=== PATIENT | female | born 1945 | race Caucasian/White ===

== ENCOUNTER 2016-09-13 16:39 | Emergency (ER) | payer MEDICAID, MEDICARE ==
[2016-09-13 16:44] VITALS: BP 141/76
[2016-09-13] MEDS ORDERED: CEPHALEXIN 500 MG CAPSULE PO ONE (17:15)
--- NOTE | 2016-09-13 17:28 | ER Document Report ---
HPI - HPI Patient complains to provider of: r 4th toe pain Onset: Other - 2 days Onset/Duration: Gradual Quality of pain: Achy Pain Level: 5 Context: Pt complains of pain to right fourth toe with redness and swelling. Patient denies any injury. Patient denies any fever. Associated Symptoms: Other - toe pain, swelling. denies: Fever Exacerbated by: Movement, Walking Relieved by: Denies Similar symptoms previously: No Recently seen / treated by doctor: No - ROS ROS below otherwise negative: Yes Systems Reviewed and Negative: Yes All other systems reviewed and negative - CONSTITUTIONAL Constitutional: DENIES: Fever, Chills - GASTROINTESTINAL Gastrointestinal: DENIES: Nausea - MUSCULOSKELETAL Musculoskeletal: REPORTS: Extremity pain - r 4th toe, Swelling - DERM Skin Color: Erythema Notes: fluid filled lesion to toe Past Medical History - General Information source: Patient - Social History Smoking Status: Never Smoker Frequency of alcohol use: None Drug Abuse: None Lives with: Alone Family History: Reviewed & Not Pertinent Patient has suicidal ideation: No Patient has homicidal ideation: No - Past Medical History Cardiac Medical History: Reports: Hx Coronary Artery Disease, Hx Hypercholesterolemia, Hx Hypertension Endocrine Medical History: Reports: Hx Diabetes Mellitus Type 2 Renal/ Medical History: Denies: Hx End Stage Renal Disease, Hx Peritoneal Dialysis, Hx Renal Insufficiency Past Surgical History: Reports: Hx Cardiac Surgery Vertical Provider Document - CONSTITUTIONAL Agree With Documented VS: Yes Exam Limitations: No Limitations General Appearance: WD/WN, No Apparent Distress - INFECTION CONTROL TRAVEL OUTSIDE OF THE [place] IN LAST 30 DAYS: No - HEENT HEENT: Atraumatic, Normocephalic - NECK Neck: Normal Inspection - RESPIRATORY Respiratory: No Respiratory Distress O2 Sat by Pulse Oximetry: 98 - CARDIOVASCULAR Pulses: Normal: Dorsalis pedis - MUSCULOSKELETAL/EXTREMETIES Musculoskeletal/Extremeties: MAEW, Tender - r 4th toe tenderness, Edema - NEURO Level of Consciousness: Awake, Alert, Appropriate Motor/Sensory: No Motor Deficit - DERM Integumentary: Warm, Dry Notes: Patient with a purulent, fluid-filled bulla along the nail margin of the right fourth toe concerning for paronychia. Patient with minimal erythema extending from the toe into the foot. Course - Re-evaluation Re-evalutation: 09/13/16 17:[address] Arora who recommends draining lesion and debriding devitalized tissue 09/13/16 17:34 After toe was cleansed with Betadine solution, needle was used to drain purulent drainage. Devitalized tissue was lifted with pickups and removed with scissors. Patient tolerated procedure well. - Vital Signs Vital signs: Temp Pulse Resp BP Pulse Ox 98.2 F 86 20 141/76 H 98 09/13/16 16:43 09/13/16 16:43 09/13/16 16:43 09/13/16 16:43 09/13/16 16:43 Discharge - Discharge Clinical Impression: Paronychia of fourth toe of right foot Cellulitis Qualifiers: Site of cellulitis: extremity Site of cellulitis of extremity: lower extremity Laterality: right Qualified Code(s): L03.115 - Cellulitis of right lower limb Condition: Stable Disposition: HOME, SELF-CARE Instructions: Paronychia ([facility]), Cellulitis ([facility]), Cephalexin ([facility]) Additional Instructions: Return immediately for any new or worsening symptoms: fever, increased redness, increased swelling, increased pain, or any concerning symptoms Followup with your primary care provider, call tomorrow to make a followup appointment Wound culture is pending, we will call if you need any different treatment Follow-up with your primary doctor Thursday for recheck Prescriptions: Cephalexin Monohydrate [Keflex 500 mg Capsule] 500 mg PO BID 7 Days Referrals: MARCELLE PALUMBO MD [ACTIVE STAFF] - 09/15/16
== END 2016-09-13 18:01 | disposition home or self-care (01) ==
LOC: ER 16:39
PROC: 0H9MXZZ Drainage of Right Foot Skin, External Approach (ICD-10-PCS; principal; 2016-09-13)
DX: L03.031 Cellulitis of right toe (principal); L03.115 Cellulitis of right lower limb; R22.9 Localized swelling, mass and lump, unspecified; I25.10 Atherosclerotic heart disease of native coronary artery without angina pectoris; E78.00 Pure hypercholesterolemia, unspecified; I10 Essential (primary) hypertension; E11.9 Type 2 diabetes mellitus without complications
CPT/HCPCS: 99281; 87070; 87205; 87075; 87077; 87186; 10060; A9270; 99283

== ENCOUNTER 2017-08-27 06:56 | Day surgery (SDC) | payer MEDICARE, MEDICAID ==
[~2017-08-27 06:56] MED LIST: KETOROLAC TROMETHAMINE 0.45% 4 DROP/0.4 ML DROPERETTE OS PRN; MIDAZOLAM 2 MG/2 ML INJ ONE
[2017-08-27] MEDS ORDERED: EPINEPHRINE INJ/PF 1 MG/1 ML AMPULE ONE (07:12)
[2017-08-27] MEDS ORDERED: LIDOCAINE 1% INJ-PF (10 MG/ML) 30 ML SDV ONE (07:13)
[2017-08-27] MEDS ORDERED: CHONDR SU A NA/HYALUR INTRAOC KIT (SURGICARE) ONE (07:13)
[2017-08-27] MEDS: TETRACAINE HCL 0.5% OPH SOLN 2 ML OS PRN ×3 (07:54→08:22)
[2017-08-27] MEDS: BESIFLOXACIN HCL 0.6% OPH SUSP 5 ML BOTTLE OS PRN ×3 (07:54→08:39)
[2017-08-27] MEDS: CYCLOPENTOLATE 0.2%/PHENYLEPHRINE 1% OPH SOLN 2 ML OS PRN ×3 (07:54→08:13)
[2017-08-27] MEDS: TROPICAMIDE 1% OPH SOLN 3 ML OS PRN ×3 (07:54→08:13)
--- NOTE | 2017-08-27 14:45 | [facility] OPERATIVE REPORT E ---
[facility] Operative Report NAME: KARINA DONG AGE: 71Y DATE OF SURGERY: 08/27/2017 ROOM: PREOPERATIVE DIAGNOSIS: CATARACT, LEFT EYE. POSTOPERATIVE DIAGNOSIS: CATARACT, LEFT EYE. OPERATION: Cataract extraction with intraocular lens implant of the left eye. SURGEON: KAYLIN DOYLE M.D. ANESTHESIA: Topical. TISSUE REMOVED OR ALTERED: PROCEDURE: After obtaining appropriate consent, the patient's left eye was prepped and draped in sterile fashion as well as the surgeon in a sterile manner and cataract surgery was started. First a paracentesis blade was used to make a small side-port incision. Viscoelastic was used to inflate the anterior chamber. Next a 2.4 mm incision was made with the paracentesis blade. A continuous capsulorrhexis incision was made using a cystotome and Utrata forceps. Following this hydrodissection was carried out to make the lens fully loose and mobile and it was rotated 90 degrees. Following this, a vyawhz-vor-fjhsjrm technique was used to phacoemulsify the lens with a CDE of 9.01. The remaining cortex was removed with irrigation/aspiration. Provisc was instilled into the capsular bag to inflate the bag. A SN60WF, 22.0 diopter lens was placed. The remaining viscoelastic material was removed with irrigation/aspiration. Vigamox was instilled in the eye and a protective shield was placed over the eye. The patient returned to the postoperative recovery in stable condition. DICTATING PHYSICIAN: KAYLIN DOYLE M.D. [id number] PHY#: [id number] ID: [id number] JOB#: [id number] ACCT: [id number] cc:KAYLIN DOYLE M.D. > MTDD
--- NOTE | 2017-08-27 14:49 | [facility] DISCHARGE SUMMARY E ---
[facility] Discharge Summary NAME: KARINA DONG AGE: 71Y ADMITTED: 08/27/2017 DISCHARGED: 08/27/2017 FINAL DIAGNOSIS: Cataract, left eye. HOSPITAL COURSE: This is a 71-year-old patient who underwent cataract extraction of the left eye. He underwent surgery because he was having difficulty reading road signs and words on the television. She should be on a regular diet. No bending at her waist, no heavy lifting. She should use Besivance, Ilevro and Durezol at 3:00 p.m. and 8:00 p.m. Sleep with a rigid shield. I will see her for a 1-day postoperative tomorrow. DICTATING PHYSICIAN: KAYLIN DOYLE M.D. [id number] PHY#: [id number] ID: [id number] JOB#: [id number] ACCT: [id number] cc:KAYLIN DOYLE M.D. >
== END 2017-08-27 09:20 | disposition home or self-care (01) ==
LOC: SC 06:56
PROVIDERS: ATTEND Internal Medicine
DX: H25.13 Age-related nuclear cataract, bilateral (principal); H35.3131 Nonexudative age-related macular degeneration, bilateral, early dry stage; H04.123 Dry eye syndrome of bilateral lacrimal glands; H01.002 Unspecified blepharitis right lower eyelid; E11.9 Type 2 diabetes mellitus without complications; H01.005 Unspecified blepharitis left lower eyelid; I10 Essential (primary) hypertension; J44.9 Chronic obstructive pulmonary disease, unspecified; G47.30 Sleep apnea, unspecified; Z79.84 Long term (current) use of oral hypoglycemic drugs; Z79.899 Other long term (current) drug therapy; Z79.4 Long term (current) use of insulin
CPT/HCPCS: 66984; 82962; V2632; J2250; J3490 ×2; A9270; J0171; 142

== ENCOUNTER 2017-09-24 06:32 | Day surgery (SDC) | payer MEDICARE, MEDICAID ==
[~2017-09-24 06:32] MED LIST changes: +KETOROLAC TROMETHAMINE 0.45% 4 DROP/0.4 ML DROPERETTE OD PRN; -KETOROLAC TROMETHAMINE 0.45% 4 DROP/0.4 ML DROPERETTE OS PRN; -MIDAZOLAM 2 MG/2 ML INJ ONE
[2017-09-24] MEDS ORDERED: EPINEPHRINE INJ/PF 1 MG/1 ML AMPULE ONE (06:51)
[2017-09-24] MEDS ORDERED: LIDOCAINE 1% INJ-PF (10 MG/ML) 30 ML SDV ONE (06:51)
[2017-09-24] MEDS ORDERED: CHONDR SU A NA/HYALUR INTRAOC KIT (SURGICARE) ONE (06:51)
[2017-09-24] MEDS: BESIFLOXACIN HCL 0.6% OPH SUSP 5 ML BOTTLE OD PRN ×4 (06:53→08:23)
[2017-09-24] MEDS: TROPICAMIDE 1% OPH SOLN 3 ML OD PRN ×3 (06:53→07:11)
[2017-09-24] MEDS: CYCLOPENTOLATE 0.2%/PHENYLEPHRINE 1% OPH SOLN 2 ML OD PRN ×3 (06:53→07:11)
[2017-09-24] MEDS: TETRACAINE HCL 0.5% OPH SOLN 2 ML OD PRN ×3 (06:53→07:53)
[2017-09-24] MEDS ORDERED: FENTANYL CITRATE INJ/PF 100 MCG/2 ML AMPUL ONE (07:01)
[2017-09-24] MEDS ORDERED: MIDAZOLAM 2 MG/2 ML INJ ONE (07:01)
--- NOTE | 2017-09-24 20:05 | [facility] DISCHARGE SUMMARY E ---
[facility] Discharge Summary NAME: KARINA DONG AGE: 72Y ADMITTED: 09/24/2017 DISCHARGED: 09/25/2027 HOSPITAL COURSE: This is a 72-year-old patient who underwent cataract extraction of the right eye. DIAGNOSIS: CATARACT, RIGHT EYE. He underwent surgery because he was having difficulty seeing letters on the television. DISCHARGE INSTRUCTIONS: He should be on a regular diet. No bending at the waist, no heavy lifting. He should use the Besivance, Ilevro, and Durezol at 3 p.m. and 8 p.m. and sleep with a rigid shield. I will see him for his 1 day postoperative tomorrow. DICTATING PHYSICIAN: KAYLIN DOYLE M.D. [id number] PHY#: [id number] ID: [id number] JOB#: [id number] ACCT: [id number] cc:KAYLIN DOYLE M.D. >
--- NOTE | 2017-09-24 20:06 | [facility] OPERATIVE REPORT E ---
[facility] Operative Report NAME: KARINA DONG AGE: 72Y DATE OF SURGERY: 09/24/2017 ROOM: PREOPERATIVE DIAGNOSIS: CATARACT, RIGHT EYE. POSTOPERATIVE DIAGNOSIS: CATARACT, RIGHT EYE. OPERATION: Cataract extraction with insertion of an IOL of the right eye. SURGEON: KAYLIN DOYLE M.D. ANESTHESIA: Topical. PROCEDURE: After obtaining appropriate consent, the patient's right eye was prepped and draped in sterile fashion as well as the surgeon in a sterile manner and cataract surgery was started. First a paracentesis blade was used to make a side-port incision. Viscoelastic was used to inflate the anterior chamber. Next a 2.4 mm incision was made with a 2.4 mm blade, clear corneal temporally. A continuous capsulorrhexis was made using a cystotome and Utrata forceps. Following this hydrodissection was carried out to make the lens fully loose and mobile and it was rotated 90 degrees. Following this, a iqbxrd-ixd-qgqeknn technique was used to phacoemulsify the lens with a CDE of 7.09. The remaining cortex was removed with irrigation/aspiration. Provisc was instilled into the capsular bag to inflate the bag. A SN60WF, 22.5 diopter lens was placed. The remaining viscoelastic material was removed with irrigation/aspiration. Following this, the incision was found to be watertight. Besivance was instilled into the eye and a protective shield was placed over the eye. The patient returned to the postoperative recovery in stable condition. DICTATING PHYSICIAN: KAYLIN DOYLE M.D. [id number] PHY#: [id number] ID: [id number] JOB#: [id number] ACCT: [id number] cc:KAYLIN DOYLE M.D. >
== END 2017-09-24 09:04 | disposition home or self-care (01) ==
LOC: SC 06:32
PROVIDERS: ATTEND Internal Medicine
DX: H25.11 Age-related nuclear cataract, right eye (principal); Z96.1 Presence of intraocular lens; I10 Essential (primary) hypertension; E11.9 Type 2 diabetes mellitus without complications; G47.30 Sleep apnea, unspecified; F17.290 Nicotine dependence, other tobacco product, uncomplicated; I25.2 Old myocardial infarction; Z79.84 Long term (current) use of oral hypoglycemic drugs; Z79.4 Long term (current) use of insulin
CPT/HCPCS: 66984; 82962; V2632; J2250; J3490 ×2; A9270; J0171; J3010; 142

== ENCOUNTER 2017-09-26 14:34 | Emergency (ER) | payer MEDICARE, MEDICAID ==
--- NOTE | 2017-09-26 14:40 | ER Document Report ---
ED General - General Stated Complaint: FALL RIGHT LEG PAIN Time Seen by Provider: 09/26/17 14:37 Mode of Arrival: Medic Information source: Patient, Parent TRAVEL OUTSIDE OF THE U.[place]. IN LAST 30 DAYS: No - HPI Notes: 72-year-old female presents ED today with complaints of right foot pain after she fell through porch and hurt her ankle 2 hours ago. Denies any head trauma change in level consciousness. Pain is 7 out of 10, throbbing achy. Worse with movement, better at rest. Denies any numbness or tingling bilateral lower extremities. Denies any other injury. Has not tried any natr-vbg-ifgoqvf medications. Unable to bear full weight. Worse with time, nothing makes better. Denies any radiation of pain. Denies fevers, chills, chest pain, palpitations, shortness of breath, dyspnea, nausea, vomiting, diarrhea, abdominal pain, hematuria,blurred vision, double vision, loss of vision, speech changes, LH, dizziness, syncope, headaches, wheezing, ST, URI, neck pain, weakness, bowel or bladder dysfunction, saddle anesthesia, numbness or tingling in bilateral upper or lower extremities equally, muscle paralysis, weakness in bilateral upper or lower extremities equally or rash. Denies IV drug use. - Related Data Allergies/Adverse Reactions: No Known Allergies Allergy (Verified 09/24/17 06:58) Past Medical History - General Information source: Patient - Social History Smoking Status: Unknown if Ever Smoked Family History: Reviewed & Not Pertinent - Past Medical History Cardiac Medical History: Reports: Hx Coronary Artery Disease, Hx Heart Attack - 2013, Hx Hypercholesterolemia, Hx Hypertension Pulmonary Medical History: Denies: Hx Asthma Neurological Medical History: Denies: Hx Cerebrovascular Accident, Hx Seizures Endocrine Medical History: Reports: Hx Diabetes Mellitus Type 2 Renal/ Medical History: Denies: Hx End Stage Renal Disease, Hx Peritoneal Dialysis, Hx Renal Insufficiency GI Medical History: Denies: Hx Hepatitis, Hx Hiatal Hernia, Hx Ulcer Infectious Medical History: Denies: Hx Hepatitis Past Surgical History: Reports: Hx Cardiac Surgery. Denies: Hx Mastectomy, Hx Open Heart Surgery, Hx Pacemaker - Immunizations Hx Diphtheria, Pertussis, Tetanus Vaccination: Yes Review of Systems - Review of Systems Constitutional: No symptoms reported EENT: No symptoms reported Cardiovascular: No symptoms reported Respiratory: No symptoms reported Gastrointestinal: No symptoms reported Genitourinary: No symptoms reported Female Genitourinary: No symptoms reported Musculoskeletal: See HPI Skin: No symptoms reported Hematologic/Lymphatic: No symptoms reported Neurological/Psychological: No symptoms reported Physical Exam - Vital signs Vitals: Temp Pulse Resp BP Pulse Ox 98.0 F 89 16 181/81 H 97 09/26/17 14:50 09/26/17 14:50 09/26/17 14:50 09/26/17 14:50 09/26/17 14:50 - Notes Notes: PHYSICAL EXAMINATION: GENERAL: Well-appearing, well-nourished and in no acute distress. HEAD: Atraumatic, normocephalic. EYES: Pupils equal round and reactive to light, extraocular movements intact, conjunctiva are normal. ENT: Nares patent, oropharynx clear without exudates. Moist mucous membranes. NECK: Normal range of motion, supple without lymphadenopathy LUNGS: Breath sounds clear to auscultation bilaterally and equal. No wheezes rales or rhonchi. HEART: Regular rate and rhythm without murmurs ABDOMEN: Soft, nontender, nondistended abdomen. No guarding, no rebound. No masses appreciated. Female : deferred Musculoskeletal: Normal range of motion, no pitting or edema. No cyanosis. right ankle with swelling, tenderness on lateral aspect of ankle. pain with inversion. squeeze test negative. dtr +2 BLE. Limited APROM. distal pulses + 2 BLE equally. Full motor and sensory function of bilateral lower extremities. No noted open wounds or abrasion. Normal gait. No vascular compromise. Peroneal nerve is intact with strong eversion and plantar flexion. Negative anterior drawer test. NEUROLOGICAL: Cranial nerves grossly intact. Normal speech, normal gait. Normal sensory, motor exams PSYCH: Normal mood, normal affect. SKIN: Warm, Dry, normal turgor, no rashes or lesions noted. Course - Re-evaluation Re-evalutation: 09/26/17 17:38 Febrile, vitals stable and in no distress female presents for evaluation of right ankle pain after falling through a porch. X-ray of right ankle shows an avulsion fracture, no dislocation or angulation. consent by patient given to place long posterior splint,. cms intact, sensory motor function intact in bilateral lower extremities prior to splint application fiberglass splint placed without incident. cms intact 20 minutes after splint application. Splint is in good alignment. Bilateral lower extremities with motor and sensory function intact 20 minutes after application. Pt stated that splint felt comfortable. I have reevaluated this patient multiple times and no significant life threatening changes, open fracture, compartment syndrome, tendon rupture, acute neurovascular injury, retained foreign body no signs of toxicity, sepsis or peritonitis are noted. The patient and I have discussed the diagnosis and risks , and we agree with discharging home and close follow-up. We also discussed returning to the Emergency Department immediately if new or worsening symptoms occur with the understanding that symptoms and presentations can change. At this time will discharge with return precautions and follow-up recommendations. Verbal discharge instructions given a the bedside and opportunity for questions given. We have discussed the symptoms which are most concerning (e.g. , worsening or changing pain, fever, numbness, weakness, cool or painful digits ) that necessitate immediate return. Medication warnings reviewed. All questions and concerns answered by this provider. Patient is in agreement with this plan and has verbalized understanding of return precautions and the need for primary care follow-up in the next 24-72 hours. Patient verbalized understanding of plan of care and agree with plan of care. - Vital Signs Vital signs: Temp Pulse Resp BP Pulse Ox 98.0 F 89 16 181/81 H 97 09/26/17 14:50 09/26/17 14:50 09/26/17 14:50 09/26/17 14:50 09/26/17 14:50 Discharge - Discharge Clinical Impression: Ankle fracture, right Qualifiers: Encounter type: initial encounter Fracture type: closed Qualified Code(s): S82.891A - Other fracture of right lower leg, initial encounter for closed fracture Condition: Good Disposition: HOME, SELF-CARE Instructions: Avulsion Fracture of the Ankle ([facility]), Use of Crutches ([facility]) Additional Instructions: Splint Pending Casting Your injury can't be casted until the swelling has subsided. Therefore, a temporary splint has been placed to protect the injury. Full use of an injured area is not possible in a splint. You should follow the doctor's instructions concerning rest, ice, and elevation of the injury. Never do anything which causes pain under the splint. Keep the splint on ALL THE TIME until you return for casting. If there is unexpected severe pain, or numbness, discoloration, or swelling beyond the splint, you should return at once. Splitn Precautions A splint has been placed. This will protect the area while healing begins. Your problem does NOT normally require a cast. It MUST, however, be held still! Keep the splint on ALL THE TIME until instructed to remove it by the doctor. As you begin to use the area, be careful. You shouldn't do anything which causes discomfort -- you may disturb the injury even with the splint in place. After the initial period of rest and elevation, if splint does not prevent pain when you move, come back. You may require placement of a different splint , or a cast. If there is unexpected severe pain, or numbness, discoloration, or swelling beyond the splint, you should return at once. If you feel that the splint has broken or become loose, come back. Compartment Syndrome Cautions You have signs of significant swelling. Occasionally, swelling and internal bleeding becomes trapped within a "compartment" -- a muscle space inside the extremity enclosed by fibrous chávez. When this swelling creates enough pressure to interfere with circulation, it's called compartment syndrome. Surgery may even be needed to release the pressure. At this time, you do not have compartment syndrome. But there is a small chance that it could develop. Keep the extremity elevated and apply ice packs as directed. Symptoms of compartment syndrome require immediate medical attention. Return immediately if you develop significantly increased pain, numbness, inability to move fingers or toes, or dramatic paleness of the hand or foot. Orthopedic Office [facility] [address] [place] [address] phone: [phone] Follow-up with Dr. mckenna, physician coding specialist on-call, for cast placement. Elevate, do not walk on fractured foot, a walker has been prescribed to you, take [place] for pain control is severe, do not drive, drink or operate heavy machinery while taking this medication as it has sedating properties. Alternate between ibuprofen and Tylenol. Return immediately for any new or worsening symptoms. Follow up with primary care provider, call tomorrow to make followup appointment. Prescriptions: Walker [Ultra-Light Rollator] 1 each [facility] DAILY #1 each Referrals: BECCA JURADO DO [Primary Care Provider] - Follow up as needed TIFFANY MILLER DO [ACTIVE STAFF] - Follow up in 3-5 days
[2017-09-26] MEDS ORDERED: KETOROLAC TROMETHAMINE 60 MG/2 ML SDV IM ONE (14:52)
[2017-09-26 14:56] VITALS: BP 181/81
--- NOTE | 2017-09-26 15:22 | RADIOLOGY REPORT (SQ) ---
EXAM DESCRIPTION: ANKLE RIGHT COMPLETE COMPLETED DATE/TIME: 09/26/2017 3:01 pm REASON FOR STUDY: s/p fall, right ankle sprain . The patient fell through the porch. Pain at the w hole ankle. COMPARISON: None. NUMBER OF VIEWS: Three views. TECHNIQUE: AP, lateral, and oblique radiographic images acquired of the right ankle. LIMITATIONS: None. FINDINGS: MINERALIZATION: Normal. BONES: A 2 mm ossific density is seen lateral to the calcaneus on the AP view, suggestive of an avuls ion injury. The ankle mortise is maintained. Bony spurs are noted at the calcaneus. SOFT TISSUES: There is mild soft tissue swelling adjacent to the calcaneus. No radiopaque foreign bod y. IMPRESSION: 2 mm ossific density lateral to the calcaneus with mild overlying soft tissue swelling, suggestive of an avulsion injury. Please correlate with point tenderness. TECHNICAL DOCUMENTATION: JOB ID: [id number] [place]-64 2010 [employer]- All Rights Reserved Reading location - IP/workstation name: [email or web address]
[2017-09-26] MEDS ORDERED: HYDROCODONE/ACETAMINOPHEN 5-325 MG (6 TAB/ER DISP) PO PRN (16:13)
== END 2017-09-26 16:29 | disposition home or self-care (01) ==
LOC: ER 14:34
DX: S82.891A Other fracture of right lower leg, initial encounter for closed fracture (principal); M79.671 Pain in right foot; W13.3XXA Fall through floor, initial encounter; I25.10 Atherosclerotic heart disease of native coronary artery without angina pectoris; I10 Essential (primary) hypertension; E11.9 Type 2 diabetes mellitus without complications
CPT/HCPCS: 99284; 96372; 73610; 29505; J1885; A9270

== ENCOUNTER 2017-10-06 17:53 | Emergency (ER) | payer MEDICARE, MEDICAID ==
--- NOTE | 2017-10-06 18:46 | ER Document Report ---
ED Medical Screen (RME) - General Chief Complaint: Fever Stated Complaint: FEVER,CONFUSED,DIFFICULTY SPEECH Time Seen by Provider: 10/06/17 18:32 Notes: Patient presents with multiple complaints: Patient fell yesterday in her home hiting her head. She has a large hematoma on the occipital aspect of her head is been somewhat altered since that time per the family member. The family member also noticed that she also has been hot to touch although she has not taken her temperature. The patient complains of right hip pain since her fall yesterday and also complains of burning with urination. She also has been having a productive cough for the last 2 days. Complaints: fall, scalp hematoma, cough, congestion, R hip pain, dysuria, fatigue, mild confusion I have greeted and performed a rapid initial assessment of this patient. A comprehensive ED assessment and evaluation of the patient, analysis of test results and completion of the medical decision making process will be conducted by additional ED providers. PHYSICAL EXAMINATION: GENERAL: Appears tired, but alert. HEAD: Large ~4cm hematoma occipital aspect of scalp with no bleeding EYES: Pupils equal round extraocular movements intact, conjunctiva are normal. ENT: Nares patent, dry oral mucus membranes NECK: Normal range of motion, mild pain moving side to side LUNGS: No respiratory distress, minor bibasilar crackles Musculoskeletal: Pain with R hip palpation, no bruising or crepitus. NEUROLOGICAL: Normal speech, normal gait. PSYCH: Appears tired, but alert and oriented x3 TRAVEL OUTSIDE OF THE [place] IN LAST 30 DAYS: No - Related Data Allergies/Adverse Reactions: No Known Allergies Allergy (Verified 09/24/17 06:58) Past Medical History - Social History Chew tobacco use (# tins/day): No Frequency of alcohol use: None Drug Abuse: None - Past Medical History Cardiac Medical History: Reports: Hx Coronary Artery Disease, Hx Heart Attack - 2013, Hx Hypercholesterolemia, Hx Hypertension Pulmonary Medical History: Denies: Hx Asthma Neurological Medical History: Denies: Hx Cerebrovascular Accident, Hx Seizures Endocrine Medical History: Reports: Hx Diabetes Mellitus Type 2 Renal/ Medical History: Denies: Hx End Stage Renal Disease, Hx Peritoneal Dialysis, Hx Renal Insufficiency GI Medical History: Denies: Hx Hepatitis, Hx Hiatal Hernia, Hx Ulcer Infectious Medical History: Denies: Hx Hepatitis Past Surgical History: Reports: Hx Cardiac Surgery. Denies: Hx Mastectomy, Hx Open Heart Surgery, Hx Pacemaker - Immunizations Hx Diphtheria, Pertussis, Tetanus Vaccination: Yes Physical Exam - Vital signs Vitals: Temp Pulse Resp BP Pulse Ox 99.7 F 78 18 115/58 L 89 L 10/06/17 18:03 10/06/17 18:03 10/06/17 18:03 10/06/17 18:03 10/06/17 18:03 Course - Vital Signs Vital signs: Temp Pulse Resp BP Pulse Ox 99.7 F 78 18 115/58 L 89 L 10/06/17 18:03 10/06/17 18:03 10/06/17 18:03 10/06/17 18:03 10/06/17 18:03 Doctor's Discharge - Discharge Referrals: BECCA JURADO DO [Primary Care Provider] - Follow up as needed
--- NOTE | 2017-10-06 19:29 | RADIOLOGY REPORT (SQ) ---
EXAM DESCRIPTION: CT CERVICAL SPINE WITHOUT COMPLETED DATE/TIME: 10/06/2017 7:11 pm REASON FOR STUDY: Fall, AMS, Fever COMPARISON: None. TECHNIQUE: Axial images acquired through the cervical spine without intravenous contrast. Images re viewed with lung, soft tissue and bone windows. Reconstructed coronal and sagittal MPR images review ed. Images stored on PACS. All CT scanners at this facility use dose modulation, iterative reconstruction, and/or weight based d osing when appropriate to reduce radiation dose to as low as reasonably achievable (ALARA). [facility]: Dose Right [facility]: CareDose [facility]: Dose Right [facility]: Teradose 4D [facility]: [employer] RADIATION DOSE: CT Rad equipment meets quality standard of care and radiation dose reduction techniq ues were employed. CTDIvol: 15.9 mGy. DLP: 319 mGy-cm. mGy. LIMITATIONS: None. FINDINGS: ALIGNMENT: Anatomic. MINERALIZATION: Normal. VERTEBRAL BODIES: No fractures or dislocation. DISCS: Multilevel disc space narrowing with osteophytes. FACETS, LATERAL MASSES, POSTERIOR ELEMENTS: Facet arthropathy. No fractures. No dislocation. No ac reg findings. HARDWARE: None in the spine. VISUALIZED RIBS: No fractures. LUNG APICES AND SOFT TISSUES: No significant or acute findings. OTHER: No other significant finding. IMPRESSION: CHRONIC DEGENERATIVE CHANGES. NO ACUTE FINDINGS. TECHNICAL DOCUMENTATION: JOB ID: [id number] Quality ID # [id number]: Final reports with documentation of one or more dose reduction techniques (e.g., Au tomated exposure control, adjustment of the mA and/or kV according to patient size, use of iterative reconstruction technique) 2010 [employer]- All Rights Reserved Reading location - IP/workstation name: [email or web address]
--- NOTE | 2017-10-06 19:31 | RADIOLOGY REPORT (SQ) ---
EXAM DESCRIPTION: CT HEAD WITHOUT COMPLETED DATE/TIME: 10/06/2017 7:11 pm REASON FOR STUDY: Fall, AMS, Fever COMPARISON: None. TECHNIQUE: Axial images acquired through the brain without intravenous contrast. Images reviewed wi th bone, brain and subdural windows. Additional sagittal and coronal reconstructions were generated. Images stored on PACS. All CT scanners at this facility use dose modulation, iterative reconstruction, and/or weight based d osing when appropriate to reduce radiation dose to as low as reasonably achievable (ALARA). [facility]: Dose Right [facility]: CareDose [facility]: Dose Right [facility]: Teradose 4D [facility]: Smart Healthcare Bluebook RADIATION DOSE: CT Rad equipment meets quality standard of care and radiation dose reduction techniq ues were employed. CTDIvol: 53.2 mGy. DLP: 911 mGy-cm.mGy. LIMITATIONS: None. FINDINGS: VENTRICLES: Prominent. CEREBRUM: No masses. No hemorrhage. No midline shift. Areas of low density in the white matter mos t likely due to chronic micro-vascular ischemic change. No evidence for acute infarction. CEREBELLUM: No masses. No hemorrhage. No alteration of density. No evidence for acute infarction. EXTRAAXIAL SPACES: Age-related involutional change. Prominent empty sella. No fluid collections. N o masses. ORBITS AND GLOBE: No intra- or extraconal masses. Normal contour of globe without masses. CALVARIUM: No fracture. PARANASAL SINUSES: No fluid or mucosal thickening. SOFT TISSUES: No mass or hematoma. OTHER: No other significant finding. IMPRESSION: CHRONIC CHANGES OF ATROPHY AND MICROVASCULAR ISCHEMIA. PROMINENT EMPTY SELLA. NO ACUTE PROCESS. EVIDENCE OF ACUTE STROKE: NO. TECHNICAL DOCUMENTATION: JOB ID: [id number] Quality ID # [id number]: Final reports with documentation of one or more dose reduction techniques (e.g., Au tomated exposure control, adjustment of the mA and/or kV according to patient size, use of iterative reconstruction technique) 2010 [employer]- All Rights Reserved Reading location - IP/workstation name: [email or web address]
--- NOTE | 2017-10-06 19:39 | ER Document Report ---
ED General - General Mode of Arrival: Ambulatory Information source: Patient TRAVEL OUTSIDE OF THE [place]. IN LAST 30 DAYS: No <LATA SÁNCHEZ - Last Filed: 10/06/17 22:52> <BORISVANDANAARIELA - Last Filed: 10/07/17 01:47> - General Chief Complaint: Fever Stated Complaint: FEVER,CONFUSED,DIFFICULTY SPEECH Time Seen by Provider: 10/06/17 18:32 Notes: Patient is a 72 year old female with diabetes, CAD, HTN, hyperlipidemia and a history of [place] (2014, stent placed then at [facility]) presents to the emergency department complaining of multiple symptoms including a fall yesterday with a subsequent hematoma on the occipital region, hip pain and confusion after the fall, cough onset 2 days ago, burning urination, fatigue and a subjective fever. Daughter at bedside states the patient fell yesterday and has a bruise to the back of her head, further stating she does not know how the patient fell. She states since the fall the patient has appeared a little confused and she's also noticed the patient is hot to the touch. Patient was seen and discharged from the emergency department 10 days ago after a fall with complaints of right ankle pain. Patient complained of some right ankle pain at bedside. Patient is currently prescribed 10 mg of Percocet for chronic back pain. Patient mentions having recent cardiac surgery on the right side on September 24, 2017 cardiac surgery on the left eye August 27, 2017. Patient's PCP is Dr. Dowell. (LATA SÁNCHEZ) - Related Data Allergies/Adverse Reactions: No Known Allergies Allergy (Verified 09/24/17 06:58) Past Medical History - General Information source: Patient - Social History Smoking Status: Never Smoker Chew tobacco use (# tins/day): No Frequency of alcohol use: None Drug Abuse: None Family History: Reviewed & Not Pertinent Patient has suicidal ideation: No Patient has homicidal ideation: No - Past Medical History Cardiac Medical History: Reports: Hx Coronary Artery Disease, Hx Heart Attack - 2014, stent placed, Hx Hypercholesterolemia, Hx Hypertension EENT Medical History: Reports: Eyes - Cataract surgery. Left eye of August 27, 2017. Right eye September 24, 2017. Endocrine Medical History: Reports: Hx Diabetes Mellitus Type 2 Past Surgical History: Reports: Hx Cardiac Surgery, Other - Benign breast biopsy. - Immunizations Hx Diphtheria, Pertussis, Tetanus Vaccination: Yes <LATA SÁNCHEZ - Last Filed: 10/06/17 22:52> Review of Systems - Review of Systems Constitutional: See HPI, Fever - Daughter reports hot to touch, Other - fatigue EENT: No symptoms reported Cardiovascular: No symptoms reported Respiratory: See HPI, Cough Gastrointestinal: No symptoms reported Genitourinary: See HPI, Burning Female Genitourinary: No symptoms reported Musculoskeletal: See HPI Skin: No symptoms reported Hematologic/Lymphatic: No symptoms reported Neurological/Psychological: See HPI, Confusion -: Yes All other systems reviewed and negative <LATA SÁNCHEZ - Last Filed: 10/06/17 22:52> Physical Exam - General General appearance: Appears well, Alert In distress: None - HEENT Head: Normocephalic, Other - Hematoma to the right occipital region, near midline. Somewhat tender to palpation. Eyes: Normal Conjunctiva: Normal Extraocular movements intact: Yes Pupils: PERRL Neck: Normal - Respiratory Respiratory status: No respiratory distress Chest status: Nontender Breath sounds: Rales - at bases bilaterally Chest palpation: Normal - Cardiovascular Rhythm: Regular Heart sounds: Normal auscultation Murmur: No Friction rub: No Gallop: None auscultated - Abdominal Inspection: Normal Distension: No distension Bowel sounds: Normal Tenderness: Nontender Organomegaly: No organomegaly - Back Back: Normal - Extremities General upper extremity: Normal ROM General lower extremity: Normal ROM - Bilateral hip is not tender to palpation no pain with internal or external rotation. No pain with flexion or extension of bilateral lower extremities.. No: Edema Ankle: Tender - Right ankle is tender to palpation laterally, Minimal edema proximal to foot. - Neurological Neuro grossly intact: Yes Cognition: Confused Orientation: AAOx4 [place] Coma Scale Eye Opening: Spontaneous Shahzad Coma Scale Verbal: Oriented [place] Coma Scale Motor: Obeys Commands [place] Coma Scale Total: 15 Speech: Normal - Psychological Associated symptoms: Normal affect, Normal mood - Skin Skin Temperature: Warm Skin Moisture: Dry Skin Color: Normal <LATA SÁNCHEZ - Last Filed: 10/06/17 22:52> - Vital signs Vitals: Temp Pulse Resp BP Pulse Ox 99.7 F 78 18 115/58 L 89 L 10/06/17 18:03 10/06/17 18:03 10/06/17 18:03 10/06/17 18:03 10/06/17 18:03 Course - Laboratory Result Diagrams: 10/06/17 19:42 10/06/17 19:42 <LATA SÁNCHEZ - Last Filed: 10/06/17 22:52> - Laboratory Result Diagrams: 10/06/17 19:42 10/06/17 19:42 - Diagnostic Test Radiology reviewed: Image reviewed, Reports reviewed - Chest x-ray shows diffuse interstitial prominence, possibly scarring versus vascular congestion. There are no comparison chest x-rays. CT scan of the head and neck are unremarkable. X-rays of the pelvis and hips are unremarkable. - EKG Interpretation by Ms EKG shows normal: Sinus rhythm, [place], Intervals, ST-T Waves. abnormal: QRS Complexes - Recent inferior infarct Rate: Normal - 71 Rhythm: NSR When compared to previous EKG there are: Previous EKG unavailable <ARIELA ESCALANTE - Last Filed: 10/07/17 01:47> - Re-evaluation Re-evalutation: 10/07/17 00:32 [facility] was called about this patient, the patient was accepted to the service of Dr. Leblanc [facility] care is coming to vegetable picker the patient for transport. 10/07/17 01:47 Transport is here for the patient. She is resting comfortably after getting a repeat dose of Ativan to control her sundowning and dementia agitation. Blood pressure is 106/57 with heart rate 84. Pulse ox is 94% on 2 L nasal cannula. ( ARIELA ESCALANTE) - Vital Signs Vital signs: Temp Pulse Resp BP Pulse Ox 98.9 F 78 18 122/69 96 10/07/17 00:00 10/06/17 18:03 10/06/17 23:19 10/06/17 23:19 10/06/17 23:19 - Laboratory Laboratory results interpreted by [facility]: 10/06/17 10/06/17 10/06/17 19:42 19:42 19:42 WBC 11.5 H Glucose 332 H AST 201 H Creatine Kinase 1120 H CK-MB (CK-2) NT-Pro-B Natriuret Pep Urine Glucose (UA) Urine Ketones 10/06/17 10/06/17 10/06/17 19:54 21:10 21:10 WBC Glucose AST Creatine Kinase CK-MB (CK-2) 26.50 H NT-Pro-B Natriuret Pep 2570 H Urine Glucose (UA) >=500 H Urine Ketones TRACE H Critical Care Note - Critical Care Note Total time excluding time spent on procedures (mins): 50 <ARIELA ESCALANTE - Last Filed: 10/07/17 01:47> Discharge <LATA SÁNCHEZ - Last Filed: 10/06/17 22:52> <ARIELA ESCALANTE - Last Filed: 10/07/17 01:47> - Discharge Clinical Impression: Myocardial infarction Qualifiers: Myocardial infarction type: unspecified Involved coronary artery: unspecified coronary artery Qualified Code(s): I21.9 - Acute myocardial infarction, unspecified Contusion of occipital region of scalp Qualifiers: Encounter type: initial encounter Qualified Code(s): S00.03XA - Contusion of scalp, initial encounter Condition: Good Disposition: [facility] Referrals: BECCA DOWELL DO [Primary Care Provider] - Follow up as needed Scribe Attestation: 10/06/17 19:52 I personally performed the services described in the documentation, reviewed and edited the documentation which was dictated to the scribe in my presence, and it accurately records my words and actions. (ARIELA ESCALANTE) Scribe Documentation - Scribe Written by Tracey:: Tracey Oquendo, 10/06/2017 20:11 acting as scribe for :: Boris <LATA SÁNCHEZ - Last Filed: 10/06/17 22:52>
[2017-10-06 20:04] LABS: ABSOLUTE EOSINOPHILS # (AUTO) 0.1 10^3/uL (0.0-0.6); ABSOLUTE LYMPHOCYTES (AUTO) 2.4 10^3/uL (0.5-4.7); ABSOLUTE MONOCYTES (AUTO) 1.2 10^3/uL (0.1-1.4); ABSOLUTE NEUT (AUTO) 7.8 10^3/uL (1.7-8.2); BASOPHILS % (AUTO) 0.4 % (0-2); EOSINOPHILS % (AUTO) 0.6 % (0-6); HEMATOCRIT 40.6 % (36.0-47.0); HEMOGLOBIN 13.8 g/dL (12.0-15.5); LYMPHOCYTES % (AUTO) 20.5 % (13-45); MEAN CORPUSCULAR HGB CONC 34.1 g/dL (32.0-36.0); MEAN CORPUSCULAR VOLUME 91 fl (80-97); MONOCYTES % (AUTO) 10.8 % (3-13); PLATELET COUNT 197 10^3/uL (150-450); RED BLOOD COUNT 4.46 10^6/uL (3.72-5.28); RED CELL DISTRIBUTION WIDTH 12.5 % (11.5-14.0); SEGMENTED NEUTROPHILS % (AUTO) 67.7 % (42-78); TOTAL CELLS COUNTED % (AUTO) 100 %; WHITE BLOOD COUNT 11.5 10^3/uL (4.0-10.5)
--- NOTE | 2017-10-06 20:07 | RADIOLOGY REPORT (SQ) ---
EXAM DESCRIPTION: CHEST SINGLE VIEW COMPLETED DATE/TIME: 10/06/2017 7:52 pm REASON FOR STUDY: cough congestion COMPARISON: None. EXAM PARAMETERS: NUMBER OF VIEWS: One view. TECHNIQUE: Single frontal radiographic view of the chest acquired. RADIATION DOSE: NA LIMITATIONS: None. FINDINGS: LUNGS AND PLEURA: Low lung volumes. Diffuse interstitial prominence. No large pleural ef fusion. No pneumothorax. MEDIASTINUM AND HILAR STRUCTURES: No masses. Contour normal. HEART AND VASCULAR STRUCTURES: Cardiomegaly. BONES: No acute findings. HARDWARE: Hardware in the left humerus. OTHER: No other significant finding. IMPRESSION: CARDIOMEGALY. DIFFUSE INTERSTITIAL PROMINENCE WHICH MAY BE DUE TO CHRONIC SCARRING VERS US INTERSTITIAL EDEMA. TECHNICAL DOCUMENTATION: JOB ID: [id number] [employer]- All Rights Reserved Reading location - IP/workstation name: [email or web address]
--- NOTE | 2017-10-06 20:08 | RADIOLOGY REPORT (SQ) ---
EXAM DESCRIPTION: HIP BILATERAL COMPLETED DATE/TIME: 10/06/2017 7:52 pm REASON FOR STUDY: R hip pain COMPARISON: None. NUMBER OF VIEWS: Two views TECHNIQUE: AP pelvis and additional frog-leg view of both hips. LIMITATIONS: None. FINDINGS: MINERALIZATION: Normal. HIPS: No acute fracture or dislocation. No worrisome bone lesions. PELVIS AND SACRUM: No acute fracture or dislocation. No worrisome bone lesions. PUBIS AND ISCHIUM: No acute fracture. LOWER LUMBAR SPINE: No significant findings as visualized. SOFT TISSUES: No findings. OTHER: No other significant finding. IMPRESSION: NEGATIVE STUDY OF THE PELVIS AND HIPS. TECHNICAL DOCUMENTATION: JOB ID: [id number] [employer]- All Rights Reserved Reading location - IP/workstation name: [email or web address]
[2017-10-06 20:13] LABS: APPEARANCE,URINE CLEAR; BILIRUBIN,URINE NEGATIVE (NEGATIVE); COLOR,URINE YELLOW; GLUCOSE, URINE >=500 mg/dL (NEGATIVE); KETONES,URINE TRACE mg/dL (NEGATIVE); LEUKOCYTE ESTERASE,URINE NEGATIVE (NEGATIVE); NITRITE,URINE NEGATIVE (NEGATIVE); PROTEIN,URINE NEGATIVE (NEGATIVE); UROBILINOGEN,URINE NEGATIVE mg/dL (<2.0)
[2017-10-06 20:20] LABS: ALANINE AMINOTRANSFERASE 43 U/L (9-52); ALBUMIN 4.1 g/dL (3.5-5.0); ALKALINE PHOSPHATASE 76 U/L (38-126); ANION GAP 12 (5-19); ASPARTATE AMINO TRANSFERASE 201 U/L (14-36); BILIRUBIN,DIRECT 0.4 mg/dL (0.0-0.4); BILIRUBIN,TOTAL 0.7 mg/dL (0.2-1.3); BLOOD UREA NITROGEN 16 mg/dL (7-20); CALCIUM 9.5 mg/dL (8.4-10.2); CARBON DIOXIDE 26 mmol/L (22-30); CHLORIDE 102 mmol/L (98-107); GLUCOSE 332 mg/dL (75-110); POTASSIUM 4.5 mmol/L (3.6-5.0); TOTAL PROTEIN 7.1 g/dL (6.3-8.2)
[2017-10-06] MEDS ORDERED: NORMAL SALINE 1000 ML 1,000 ML IV ONE (21:21)
[2017-10-06 21:46] LABS: CREATINE KINASE 1120 U/L (30-135)
[2017-10-06] MEDS ORDERED: ASPIRIN 81 MG TABLET, CHEWABLE PO ONE (22:11)
[2017-10-06] MEDS ORDERED: NITROGLYCERIN 2% OINTMENT 1 GM PACKET TP ONE (22:12)
--- NOTE | 2017-10-06 22:46 | EKG REPORT ---
SEVERITY:- ABNORMAL ECG - SINUS RHYTHM INFERIOR INFARCT, RECENT BORDERLINE R WAVE PROGRESSION, ANTERIOR LEADS : Confirmed by: Gary Alexis 06-Oct-2017 22:45:12
[2017-10-06] MEDS ORDERED: LORAZEPAM INJ 2 MG/1 ML VIAL IV ONE (23:19)
[2017-10-07] MEDS ORDERED: LORAZEPAM INJ 2 MG/1 ML VIAL IV ONE (01:14)
[2017-10-07 01:51] VITALS: BP 106/57
--- NOTE | 2017-10-07 09:38 | EKG REPORT ---
SEVERITY:- ABNORMAL ECG - SINUS RHYTHM INFERIOR INFARCT, RECENT CONSIDER POSTERIOR WALL INVOLVEMENT BORDERLINE PROLONGED QT INTERVAL : Confirmed by: Gary Alexis 07-Oct-2017 09:38:15
== END 2017-10-07 01:50 | disposition short-term general hospital (02) ==
LOC: ER 17:53
DX: I21.9 Acute myocardial infarction, unspecified (principal); S00.03XA Contusion of scalp, initial encounter; W19.XXXA Unspecified fall, initial encounter; R50.9 Fever, unspecified; R30.0 Dysuria; E78.00 Pure hypercholesterolemia, unspecified; I25.10 Atherosclerotic heart disease of native coronary artery without angina pectoris; I10 Essential (primary) hypertension; E11.9 Type 2 diabetes mellitus without complications; I25.2 Old myocardial infarction
CPT/HCPCS: 93005 ×2; 96376; 99291; 96361; 96374; 36415; 87040; 82553; 82550; 83605; 85025; 80053; 81001; 84484; 83880; 71045; 73522; 70450; 72125; 93010 ×2; A9270 ×2; J2060 ×2; J7030

== ENCOUNTER 2020-05-10 17:58 | Emergency (ER) | payer MEDICARE, MEDICAID ==
[2020-05-10] MEDS ORDERED: ONDANSETRON HCL INJ/PF 4 MG/2 ML SDV IV ONE (18:43)
--- NOTE | 2020-05-10 18:44 | ER Document Report ---
ED Medical Screen (RME) - General Chief Complaint: Diarrhea Stated Complaint: HIGH BLOOD SUGAR Time Seen by Provider: 05/10/20 18:41 Primary Care Provider: BECCA JURADO DO [Primary Care Provider] - Follow up as needed Notes: Patient states she was at home and had an episode of heart racing with shortness of breath off and on that started this morning. Patient presently denies any symptoms. Patient does state she had urinary frequency as well as nausea. Patient states she last vomited yesterday. Patient denies any chest discomfort. Patient reports a history of AR, hypertension, diabetes and CHF. I have greeted and performed a rapid initial assessment of this patient. A comprehensive ED assessment and evaluation of the patient, analysis of test results and completion of the medical decision making process will be conducted by additional ED providers. TRAVEL OUTSIDE OF THE [place] IN LAST 30 DAYS: No - Related Data Allergies/Adverse Reactions: No Known Allergies Allergy (Verified 09/24/17 06:58) Past Medical History - Social History Chew tobacco use (# tins/day): Yes Frequency of alcohol use: None Drug Abuse: None - Past Medical History Cardiac Medical History: Reports: Hx Coronary Artery Disease, Hx Heart Attack - 2014, stent placed, Hx Hypercholesterolemia, Hx Hypertension Pulmonary Medical History: Denies: Hx Asthma Neurological Medical History: Denies: Hx Cerebrovascular Accident, Hx Seizures Endocrine Medical History: Reports: Hx Diabetes Mellitus Type 2 Renal/ Medical History: Denies: Hx End Stage Renal Disease, Hx Peritoneal Dialysis, Hx Renal Insufficiency GI Medical History: Denies: Hx Hepatitis, Hx Hiatal Hernia, Hx Ulcer Infectious Medical History: Denies: Hx Hepatitis Past Surgical History: Reports: Hx Cardiac Surgery, Other - Benign breast biopsy.. Denies: Hx Mastectomy, Hx Open Heart Surgery, Hx Pacemaker - Immunizations Hx Diphtheria, Pertussis, Tetanus Vaccination: Yes Physical Exam - Vital signs Vitals: Temp Resp BP Pulse Ox 98.8 F 21 H 159/83 H 98 05/10/20 18:06 05/10/20 18:06 05/10/20 18:06 05/10/20 18:06 - Respiratory Respiratory status: No respiratory distress - Cardiovascular Rhythm: Regular. No: Tachycardia Heart sounds: S1 appreciated, S2 appreciated Course - Vital Signs Vital signs: Temp Pulse Resp BP Pulse Ox 98.8 F 21 H 159/83 H 98 05/10/20 18:06 05/10/20 18:06 05/10/20 18:06 05/10/20 18:06 - Laboratory Results Laboratory Results Interpreted: 05/10/20 18:19 POC Glucose 249 H Doctor's Discharge - Discharge Referrals: BECCA JURADO DO [Primary Care Provider] - Follow up as needed
[2020-05-10 19:23] LABS: ABSOLUTE EOSINOPHILS # (AUTO) 0.1 10^3/uL (0.0-0.6); ABSOLUTE LYMPHOCYTES (AUTO) 1.9 10^3/uL (0.5-4.7); ABSOLUTE MONOCYTES (AUTO) 0.5 10^3/uL (0.1-1.4); ABSOLUTE NEUT (AUTO) 4.8 10^3/uL (1.7-8.2); BASOPHILS % (AUTO) 0.4 % (0-2); EOSINOPHILS % (AUTO) 1.6 % (0-6); HEMATOCRIT 37.6 % (36.0-47.0); HEMOGLOBIN 13.1 g/dL (12.0-15.5); MEAN CORPUSCULAR HEMOGLOBIN 30.9 pg (27.0-33.4); MEAN CORPUSCULAR HGB CONC 34.8 g/dL (32.0-36.0); MEAN CORPUSCULAR VOLUME 89 fl (80-97); MONOCYTES % (AUTO) 6.6 % (3-13); PLATELET COUNT 165 10^3/uL (150-450); RED BLOOD COUNT 4.23 10^6/uL (3.72-5.28); RED CELL DISTRIBUTION WIDTH 13.2 % (11.5-14.0); SEGMENTED NEUTROPHILS % (AUTO) 65.4 % (42-78); TOTAL CELLS COUNTED % (AUTO) 100 %; WHITE BLOOD COUNT 7.3 10^3/uL (4.0-10.5)
--- NOTE | 2020-05-10 19:24 | RADIOLOGY REPORT (SQ) ---
EXAM DESCRIPTION: CHEST SINGLE VIEW IMAGES COMPLETED DATE/TIME: 05/10/2020 6:01 pm REASON FOR STUDY: palpitations, sob. COMPARISON: 10/06/2017 EXAM PARAMETERS: NUMBER OF VIEWS: One view. TECHNIQUE: Single frontal radiographic view of the chest acquired. RADIATION DOSE: NA LIMITATIONS: None. FINDINGS: LUNGS AND PLEURA: Lungs are hyperinflated. No opacities, masses or pneumothorax. No pleur al effusion. MEDIASTINUM AND HILAR STRUCTURES: No masses. Contour normal. HEART AND VASCULAR STRUCTURES: Heart normal in size. Normal vasculature. BONES: Partial visualization of intramedullary fixation in the left humerus. HARDWARE: None in the chest. OTHER: No other significant finding. IMPRESSION: No acute cardiopulmonary disease. Hyperinflated lungs which can be seen with obstructiv e lung disease. TECHNICAL DOCUMENTATION: JOB ID: [id number] 2010 [employer] All Rights Reserved Reading location - IP/workstation name: [email or web address]
[2020-05-10 19:41] LABS: ALKALINE PHOSPHATASE 72 U/L (38-126); ANION GAP 9 (5-19); ASPARTATE AMINO TRANSFERASE 26 U/L (14-36); BILIRUBIN,DIRECT 0.2 mg/dL (0.0-0.4); BILIRUBIN,TOTAL 0.4 mg/dL (0.2-1.3); BLOOD UREA NITROGEN 12 mg/dL (7-20); CALCIUM 9.3 mg/dL (8.4-10.2); CARBON DIOXIDE 27 mmol/L (22-30); CHLORIDE 102 mmol/L (98-107); GLUCOSE 246 mg/dL (75-110); POTASSIUM 4.3 mmol/L (3.6-5.0); TOTAL PROTEIN 6.7 g/dL (6.3-8.2)
[2020-05-10 19:44] LABS: APPEARANCE,URINE CLEAR; BILIRUBIN,URINE NEGATIVE (NEGATIVE); COLOR,URINE STRAW; GLUCOSE, URINE 50 mg/dL (NEGATIVE); KETONES,URINE NEGATIVE (NEGATIVE); LEUKOCYTE ESTERASE,URINE NEGATIVE (NEGATIVE); NITRITE,URINE NEGATIVE (NEGATIVE); PROTEIN,URINE NEGATIVE (NEGATIVE); URINE SPECIFIC GRAVITY 1.005; UROBILINOGEN,URINE NEGATIVE mg/dL (<2.0)
[2020-05-10 19:52] LABS: NT PRO BNP 206 pg/mL (<125)
[2020-05-10 19:53] LABS: TROPONIN I < 0.012 ng/mL
--- NOTE | 2020-05-10 19:57 | EKG REPORT ---
SEVERITY:- ABNORMAL ECG - SINUS RHYTHM INFERIOR INFARCT, AGE INDETERMINATE CONSIDER ANTERIOR INFARCT : Confirmed by: Chang Santizo MD 10-May-2020 19:56:17
--- NOTE | 2020-05-10 20:40 | ER Document Report ---
ED General - General Chief Complaint: Diarrhea Stated Complaint: HIGH BLOOD SUGAR Time Seen by Provider: 05/10/20 18:41 Primary Care Provider: BECCA JURADO DO [Primary Care Provider] - Follow up as needed Mode of Arrival: Medic Information source: Patient Notes: 74-year-old female presented to ED for complaint of racing heart shortness of breath and states that it all started this morning. She is on a heart monitor for her environmental associate. She states she is supposed to go to the environmental associate on Thursday to follow-up with this. She states she does have urinary frequency and nausea as well. She states she vomited yesterday. She denies any chest discomfort. She does have a history of an [place] high blood pressure diabetes and CHF. States she does know up with a environmental associate. Home vital signs on the monitor when I examined her were 135/72, pulse of 72, O2 sat of 98%, and a respiration of 17. She was afebrile at that time. She states she was feeling very good at that time. She states that most of her symptoms have calmed down at this time. We will wait for the rest of the labs to return and then reevaluate her. Constitutional: Negative for fever. HENT: Negative for sore throat. Eyes: Negative for visual changes. Cardiovascular: States she had no chest pain but she did have racing heart and shortness of breath that started in the morning. She is on chronic monitor from her environmental associate Respiratory: Negative for shortness of breath. Gastrointestinal: Patient states she did have some nausea and vomiting and vomited twice today Genitourinary: Patient states she did have some urinary frequency as well as nausea. Musculoskeletal: Negative for back pain. Skin: Negative for rash. Neurological: Negative for headaches, weakness or numbness. 10 point ROS negative except as marked above and in HPI. VITAL SIGNS: Within normal limits. GENERAL: No acute distress, non-toxic appearance. HEAD: Normal with no signs of head trauma. EYES: PERRLA, EOMI, conjunctiva normal, no discharge. EARS: Hearing grossly intact. NOSE: Normal. THROAT: Oropharynx is normal. NECK: Normal range of motion, no tenderness, supple, no lymphadenopathy, No adenopathy, no JVD. CHEST: Clear breath sounds bilaterally. No wheezes, rales, or rhonchi. CARDIAC: Regular rate and rhythm. S1 and S2, without murmurs, gallops, or rubs. VASCULAR: No Edema. Peripheral pulses normal and equal in all extremities. ABDOMEN: Normal and soft with no tenderness, no masses or pulsatile masses. GASTROINTESTINAL: Bowel sounds normal GENITOURINARY: Normal, No tenderness LYMPATHTIC: No lymphadenopathy noted. MUSCULOSKELETAL: Good range of motion of all major joints. Extremities without clubbing, cyanosis or edema. NEUROLOGICAL: Alert and oriented x 3. No focal sensory or strength deficits. Speech normal. Follows commands appropriately. PSYCHIATRIC: Normal Affect, judgement and mood. SKIN: Normal appearance with no rashes or lesions. TRAVEL OUTSIDE OF THE [place] IN LAST 30 DAYS: No - HPI Onset: Yesterday Onset/Duration: Intermittent Quality of pain: No pain, Other Severity: Moderate - Dysuria Pain Level: 2 Associated symptoms: Nausea, Vomiting, Other - Complete with urine, heart racing, some shortness of breath Exacerbated by: Denies Relieved by: Denies Similar symptoms previously: Yes Recently seen / treated by doctor: Yes - Related Data Allergies/Adverse Reactions: No Known Allergies Allergy (Verified 09/24/17 06:58) Past Medical History - General Information source: Patient - Social History Smoking Status: Never Smoker Chew tobacco use (# tins/day): Yes Frequency of alcohol use: None Drug Abuse: None Lives with: Family Family History: Reviewed & Not Pertinent Patient has homicidal ideation: No - Past Medical History Cardiac Medical History: Reports: Hx Congestive Heart Failure, Hx Coronary Ar shan Disease, Hx Heart Attack - 2015, stent placed, Hx Hypercholesterolemia, Hx Hypertension Pulmonary Medical History: Reports: None EENT Medical History: Reports: None Neurological Medical History: Reports: None Endocrine Medical History: Reports: Hx Diabetes Mellitus Type 2 Renal/ Medical History: Reports: None Malignancy Medical History: Reports: None GI Medical History: Reports: None Musculoskeletal Medical History: Reports None Skin Medical History: Reports None Psychiatric Medical History: Reports: None Traumatic Medical History: Reports: None Infectious Medical History: Reports: None Past Surgical History: Reports: Hx Breast Surgery - Breast biopsy, Hx Cardiac Surgery - Immunizations Hx Diphtheria, Pertussis, Tetanus Vaccination: Yes Physical Exam - Vital signs Vitals: Temp Resp BP Pulse Ox 98.8 F 21 H 159/83 H 98 05/10/20 18:06 05/10/20 18:06 05/10/20 18:06 05/10/20 18:06 Course - Vital Signs Vital signs: Temp Pulse Resp BP Pulse Ox 97.8 F 17 118/64 95 05/10/20 23:12 05/10/20 23:12 05/10/20 23:12 05/10/20 23:12 - Laboratory Results Result Diagrams: 05/10/20 19:04 05/10/20 19:04 Laboratory Results Interpreted: 05/10/20 05/10/20 05/10/20 18:19 19:04 19:04 Glucose 246 H POC Glucose 249 H Magnesium 1.5 L NT-Pro-B Natriuret Pep 206 H Urine Glucose (UA) 05/10/20 19:23 Glucose POC Glucose Magnesium NT-Pro-B Natriuret Pep Urine Glucose (UA) 50 H Critical Laboratory Results Reviewed: No Critical Results - Radiology Results Critical Radiology Results Reviewed: No Critical Results Discharge - Discharge Clinical Impression: Elevated blood sugar, Hypomagnesemia, Palpitation Condition: Stable Disposition: HOME, SELF-CARE Additional Instructions: Palpitations (Irregular/Rapid Heartrate) Irregular or rapid heartbeat is called "palpitation." To diagnose the cause of palpitation, we have to "catch it in the act" with an EKG. Sinus Tachycardia: This is a rapid (but NORMAL) rhythm that can be due to fever, pain, anxiety, lack of sleep, over-exertion, or drugs. Cold medications, caffeine, and diet pills are particularly likely to cause tachycardia. Usually, all that's required is rest, reassurance, and avoiding caffeine, alcohol, nicotine, and unnecessary medicines. Paroxysmal Atrial Tachycardia (PAT): This abnormally rapid heartbeat is caused by a "short circuit" in the electrical system of the heart. It is not dangerous, unless other heart disease is present. These attacks of PAT may occur occasionally for years. Medication is available for treatment. Paroxysmal Atrial Fibrillation or Atrial Flutter: This is irregular electrical activity in the upper heart chamber. These abnormal rhythms often occur with valve disease or in hearts damaged by hardening of the arteries. These rhythms usually require further testing, for example a cardiac echo. Premature Beats: Extra beats occur more commonly after caffeine, nicotine, alcohol, cold pills, diet pills. Emotional stress or fatigue also provoke them. Extra beats are only dangerous when heart disease is present. They usually need no treatment. If they're frequent, or if evidence of heart disease develops, medication can be given to suppress them. If we were unable to "catch" the palpitations on EKG, you should try to get an EKG immediately if the symptoms begin again. Contact the physician at once if you develop persistent lightheadedness, shortness of breath, chest pain, or swelling of the ankles. Your magnesium level was low on your labs. I did give you a copy of your lab work. Please take magnesium 400 mg once a day for the next 4 days. Please keep your appointment with your environmental associate as scheduled. These inform your environmental associate tomorrow that you were in here and that you have a set of labs and x-ray from your visit. FOLLOW-UP CARE: If you have been referred to a physician for follow-up care, call the physicians office for an appointment as you were instructed or within the next two days. If you experience worsening or a significant change in your symptoms, notify the physician immediately or return to the Emergency Department at any time for re-evaluation. Referrals: BECCA JURADO, DO [Primary Care Provider] - Follow up as needed
[2020-05-10 23:25] VITALS: BP 118/64
== END 2020-05-10 23:25 | disposition home or self-care (01) ==
LOC: ER 17:58
DX: E83.42 Hypomagnesemia (principal); R00.2 Palpitations; E11.9 Type 2 diabetes mellitus without complications; R19.7 Diarrhea, unspecified; R06.02 Shortness of breath; I25.10 Atherosclerotic heart disease of native coronary artery without angina pectoris; E78.00 Pure hypercholesterolemia, unspecified; I11.0 Hypertensive heart disease with heart failure; I50.9 Heart failure, unspecified; I25.2 Old myocardial infarction
CPT/HCPCS: 93005; 99285; 96374; 36415; 82962; 83735; 84443; 85025; 80053; 81001; 84484; 83880; 71045; 93010; J2405